=== PATIENT | female | born 1985 | race Two or more races ===

== ENCOUNTER 2020-11-03 07:32 | Emergency (ER) | payer BC ==
[~2020-11-03] VITALS: Ht 157.5 cm; Wt 68.0 kg
--- NOTE | 2020-11-03 07:32 | NUR ---
PT BIB SELF C/O PAINFUL URINATION AND ABDOMINAL CRAMPING. PT IS AAOX4, NOT IN RESPIRATORY DISTRESS, V/S STABLE, KEPT RESTED AND COMFORTABLE. WILL CONTINUE TO MONITOR.
--- NOTE | 2020-11-03 07:44 | NUR ---
URINE SPECIMEN COLLECTED AND SENT TO LAB.
--- NOTE | 2020-11-03 08:06 | NUR ---
AT BEDSIDE FOR EVAL.
--- NOTE | 2020-11-03 08:15 | NUR ---
ER PHLEB AT BEDSIDE FOR BLOOD DRAW.
--- NOTE | 2020-11-03 08:17 | NUR ---
EDGER FEEDER AT BEDSIDE FOR US.
[2020-11-03 08:18] LABS: BILIRUBIN,URINE SMALL (NEGATIVE); COLOR,URINE YELLOW (YELLOW); LEUKOCYTE ESTERASE ,URINE Negative (NEGATIVE); NITRITE, URINE Negative (NEGATIVE); PH,URINE 5.5 (5.0-8.0); PROTEIN,URINE Negative (NEGATIVE); UGLUCOSE Negative (NEGATIVE); UROBILINOGEN,URINE 0.2 EU/dL (0.2)
[2020-11-03 08:28] LABS: BASOPHILS % (AUTO) 0.6 % (0.0-2.0); EOSINOPHILS % (AUTO) 2.1 % (0.0-6.0); HEMATOCRIT 40 % (33-45); HEMOGLOBIN 13.1 g/dL (11.5-14.8); LYMPHOCYTES # (AUTO) 1.5 /CMM (0.8-4.8); LYMPHOCYTES % (AUTO) 24.1 % (20.0-44.0); MEAN CORPUSCULAR HGB CONC 33 g/dl (31.0-36.0); MEAN CORPUSCULAR VOLUME 84 fL (82-100); MONOCYTES # (AUTO) 0.3 /CMM (0.1-1.30); MONOCYTES % (AUTO) 5.7 % (2.0-12.0); NEUTROPHILS # (AUTO) 4.1 /CMM (1.8-8.9); NEUTROPHILS % (AUTO) 67.5 % (43.0-81.0); PLATELET COUNT (AUTO) 258 /CMM (150-450); RED BLOOD CELL COUNT(AUTO) 4.76 MIL/uL (4.0-5.2); WHITE BLOOD COUNT (AUTO) 6.1 K/uL (4.3-11.0)
[2020-11-03 08:33] LABS: BACTERIA,URINE Few /HPF (None Seen); SQUAMOUS EPITHELIAL CELL,UR Moderate /HPF (None Seen); WBC,URINE 0-2 /HPF (0-3)
[2020-11-03 08:34] LABS: YEAST,URINE Few /HPF (None Seen)
[2020-11-03 08:35] LABS: CALCIUM, SERUM 8.4 mg/dL (8.5-10.1); CREATININE 0.7 mg/dL (0.6-1.3)
[2020-11-03 09:02] LABS: ALBUMIN 3.4 g/dL (3.4-5.0); BILIRUBIN,TOTAL 0.2 mg/dL (0.2-1.0); TOTAL PROTEIN, SERUM 6.9 g/dL (6.4-8.2)
--- NOTE | 2020-11-03 09:41 | NUR ---
LEFT A MESSAGE ON DR. SANDS'S CELLPHONE
[2020-11-03] MEDS ORDERED: DOCU-141 PO (10:24)
--- NOTE | 2020-11-03 10:34 | NUR ---
Patient discharged to home in stable condition. Written and verbal after care instructions given. Patient verbalizes understanding of instruction.
[2020-11-03 10:35] VITALS: BP 121/68
== END 2020-11-03 10:35 | disposition home or self-care (01) ==
LOC: ER 07:38
DX: O23.591 Infection of other part of genital tract in pregnancy, first trimester (principal); B37.3 Candidiasis of vulva and vagina; O34.81 Maternal care for other abnormalities of pelvic organs, first trimester; N83.201 Unspecified ovarian cyst, right side; Z3A.01 Less than 8 weeks gestation of pregnancy
CPT/HCPCS: 36415; 76705-TC; 76805-TC; 80048-TC; 80076-TC; 81001; 84702-TC; 85025-TC; 86850-TC; 87086-TC

== ENCOUNTER 2020-11-05 02:40 | Emergency (ER) | payer BC ==
[~2020-11-05] VITALS: Ht 157.5 cm; Wt 68.5 kg
[~2020-11-05 02:40] MED LIST: DOCU-141 PO
--- NOTE | 2020-11-05 02:45 | NUR ---
Pt bibself c/o abd cramping x1hr. Pt aaox4 breathing evenly and unlabored. Pt denies vb and is 5wks. Pt attached to monitor and pox. Pt skin warm, dry, and intact.Md at bedside for eval. Pt given blanket and call light within reach
[2020-11-05] MEDS ORDERED: ACETAMINOPHEN 325 MG TABLET ONE (03:05)
[2020-11-05] MEDS: ACETAMINOPHEN 325 MG TABLET PO ONE (03:06)
--- NOTE | 2020-11-05 03:20 | NUR ---
us at bedside
[2020-11-05 03:27] LABS: BASOPHILS % (AUTO) 0.5 % (0.0-2.0); EOSINOPHILS % (AUTO) 3.5 % (0.0-6.0); HEMATOCRIT 39 % (33-45); HEMOGLOBIN 12.8 g/dL (11.5-14.8); LYMPHOCYTES # (AUTO) 1.9 /CMM (0.8-4.8); LYMPHOCYTES % (AUTO) 28.5 % (20.0-44.0); MEAN CORPUSCULAR HGB CONC 33 g/dl (31.0-36.0); MEAN CORPUSCULAR VOLUME 84 fL (82-100); MONOCYTES # (AUTO) 0.5 /CMM (0.1-1.30); MONOCYTES % (AUTO) 7.1 % (2.0-12.0); NEUTROPHILS # (AUTO) 4.1 /CMM (1.8-8.9); NEUTROPHILS % (AUTO) 60.4 % (43.0-81.0); PLATELET COUNT (AUTO) 251 /CMM (150-450); RED BLOOD CELL COUNT(AUTO) 4.65 MIL/uL (4.0-5.2); WHITE BLOOD COUNT (AUTO) 6.7 K/uL (4.3-11.0)
[2020-11-05 03:30] LABS: CALCIUM, SERUM 8.2 mg/dL (8.5-10.1); CREATININE 0.7 mg/dL (0.6-1.3); POTASSIUM 3.5 mmol/L (3.5-5.1)
[2020-11-05 03:43] LABS: BILIRUBIN,URINE Negative (NEGATIVE); COLOR,URINE YELLOW (YELLOW); LEUKOCYTE ESTERASE ,URINE Negative (NEGATIVE); NITRITE, URINE Negative (NEGATIVE); PH,URINE 5.5 (5.0-8.0); PROTEIN,URINE Negative (NEGATIVE); UGLUCOSE Negative (NEGATIVE); UROBILINOGEN,URINE 0.2 EU/dL (0.2)
[2020-11-05 03:57] LABS: ALBUMIN 3.1 g/dL (3.4-5.0); BILIRUBIN,TOTAL 0.1 mg/dL (0.2-1.0); TOTAL PROTEIN, SERUM 6.3 g/dL (6.4-8.2)
[2020-11-05 04:28] LABS: BACTERIA,URINE 1+ /HPF (None Seen); SQUAMOUS EPITHELIAL CELL,UR Few /HPF (None Seen)
[2020-11-05 04:29] LABS: MUCUS,URINE Few /LPF (None Seen); URINE AMORPHOUS URATE Few /HPF (None Seen)
--- NOTE | 2020-11-05 04:41 | NUR ---
called shakeel for image to be read
[2020-11-05] MEDS ORDERED: NITR100C6 PO (05:20)
--- NOTE | 2020-11-05 05:22 | NUR ---
Patient discharged to home in stable condition. Written and verbal after care instructions given. Patient verbalizes understanding of instruction. Pt ambulatory with a steady gait
[2020-11-05 05:24] VITALS: BP 110/66
== END 2020-11-05 05:22 | disposition home or self-care (01) ==
LOC: ER 02:46
DX: O23.41 Unspecified infection of urinary tract in pregnancy, first trimester (principal); Z3A.01 Less than 8 weeks gestation of pregnancy
CPT/HCPCS: 36415; 76856-TC; 80048-TC; 80076-TC; 81001; 84702-TC; 85025-TC